=== PATIENT | male | born 1975 | race Caucasian/White ===

== ENCOUNTER 2023-08-11 21:56 | Emergency (ER) | payer BC, SELFPAY ==
[2023-08-11 22:02] VITALS: BP 172/100
[2023-08-11 22:22] LABS: % Basophils 0.9 % (0-2); % Eosinophils 4.1 % (0-6); % Immature Granulocytes 0.1 % (0-0.5); % Lymphocytes 25.1 % (20.5-51.1); % Monocytes 6.1 % (1.7-9.3); % Neutrophils 63.7 % (42.2-75.2); Absolute Basophils 0.1 10^3/uL (0-0.2); Absolute Eosinophils 0.3 10^3/uL (0-0.7); Absolute Lymphocytes 1.7 10^3/uL (1.2-3.4); Absolute Monocytes 0.4 10^3/uL (0.1-0.6); Absolute Neutrophils 4.3 10^3/uL (1.4-6.5); Hematocrit 39.7 % (39.0-52.0); Hemoglobin 14.2 g/dL (13.0-18.0); Mean Corp Hgb Conc. 35.8 g/dL (33.0-37.0); Mean Corpuscular Hgb 29.3 pg (27.0-31.0); Mean Platelet Volume 9.2 fL (7.4-10.4); Nucleated Red Blood Cells % 0 % (-); Platelet Count 277 10^3/uL (130-400); Red Blood Cell Count 4.84 10^6/uL (4.70-6.10); Urine Albumin Negative (Neg - Trace); Urine Bilirubin Negative (Negative); Urine Character Clear (Clear); Urine Color Yellow; Urine Glucose Negative (Negative); Urine Ketone Negative (Negative); Urine Leukocyte Negative (Negative); Urine Nitrite Negative (Negative); Urine Occult Blood Negative (Negative); Urine Specific Gravity 1.025 (<1.030); Urine Urobilinogen Negative (Neg - 1+); White Blood Cell Count 6.8 10^3/uL (4.8-10.8)
[2023-08-11 22:32] LABS: Lactic Acid 1.4 mmol/L (0.7-2.0)
[2023-08-11 22:39] LABS: ALT (SGPT) 20 U/L (0-50); AST (SGOT) 22 U/L (17-59); Albumin 4.4 g/dl (3.5-5.0); Alkaline Phosphatase 73 U/L (38-126); Blood Urea Nitrogen 17 mg/dl (9-20); Calcium 9.4 mg/dl (8.4-10.2); Carbon Dioxide 29 mmol/L (22-30); Chloride 101 mmol/L (98-107); Glucose 174 mg/dl (70-99); Lipase 251 U/L (23-300); Potassium 4.2 mmol/L (3.5-5.1); Sodium 135 mmol/L (135-145); Total Bilirubin 0.6 mg/dl (0.2-1.3); eGFR > 60.00
[2023-08-11 22:45] LABS: Troponin I < 0.012 ng/ml
[2023-08-11 23:10] VITALS: BMI 24.3
[2023-08-11 23:21] VITALS: BP 139/85
--- NOTE | 2023-08-11 23:33 | ED.GENMED ---
History of Present Illness
General
Chief Complaint: Abdominal Pain
Source: patient
Exam Limitations: none
Time Seen by Provider: 08/11/23 23:17
Travel History
Have you had any contact with someone who has COVID-19?: No
Do you have any symptoms of coronavirus? Fever > 100 degrees, chills, cough, shortness of breath, sore throat, loss of taste or smell, muscle aches, or headache?: No
History of Present Illness
History of Present Illness:
This is a 47 year old male that comes in with c/o abd pain. States that this has been going on for about 2 months. State that at first he thought it was to much air getting into his stomach from his CPAP machine and patient was switched to a Bipap
machine but he has not been using. State that it feels like tonight that there are marbles moving around in his abd. States that this causes his heart rate and BP to go up. States that night has been the worse. States that he has slight nausea and
sometimes it moves up into his chest. states that he has also lost weight and he is not trying. Denies any fever, chills, chest pain, SOB ,vomiting, diarrhea, headache, dizziness, urinary burning.
Past History
Past History
ED Past Medical History: Other (Back pain with bulging disc, )
ED Past Surgical History: Tonsilectomy
Social History
Tobacco: Smoker
Alcohol: None
Drug: Marijuana and Other (methamphetamine)
Personal:
Living: with family
Review of Systems
Review of Systems
All Other Systems: ROS reviewed and negative except as documented in HPI and ROS
Constitutional: Reports no symptoms; Denies fever or chills
EENT: Reports no symptoms
Respiratory: Reports no symptoms; Denies cough or trouble breathing
Cardiac: Reports no symptoms; Denies chest pain
ABD/GI: Reports abdominal pain and nausea; Denies vomiting or diarrhea
: Reports no symptoms; Denies dysuria or urgency
Musculoskeletal: Reports no symptoms
Skin: Reports no symptoms
Neurological: Reports no symptoms; Denies dizzy or headache
Psychiatric: Reports no symptoms
Phy Exam
General Physical Exam
General Presentation: no apparent distress
General age: appears stated age
General Skin: warm and dry
General Habitus: normal
General Mental: alert
General Hydration: appears well hydrated
ENT Exam
ENT Exam: TM's normal, pharynx normal and neck supple
Eye Exam
Eye Exam: EOMI
Cardiovascular Exam
Cardiovascular Exam: regular rate/rhythm, no edema, no murmur and normal peripheral pulses
Pulmonary Exam
Pulmonary Exam: lungs clear, no respiratory distress, no rales, chest non tender, no crackles, no rhonchi, no wheezing and no cough
Gastrointestinal Exam
Gastrointestinal Exam: normal bowel sounds, soft, no organomegaly, no pulsatile mass, non distended and tender (Generalized discomfort with palpation)
Musculoskeletal Exam
Musculoskeletal Exam: full ROM and no edema
Skin Exam
Skin Exam: normal color, warm/dry, no rash and no petechia
Psychiatric Exam
Psychiatric Exam: normal mood/affect
Course
Orders/Labs/Results
Orders:
Orders
08/11/23 21:57
Electrocardiogram (*1) Urgent
Reason for Study: Chest Pain
08/11/23 21:58
EKG- Treatment ONCE
08/11/23 22:12
Complete Blood Count/With Diff Urgent
Comprehensive Metabolic Panel Urgent
Lactic Acid Urgent
Lipase Urgent
Troponin I Urgent
Urine Culture Reflexed from UA [Urinalysis Reflex To Culture] Urgent
Date Specimen was Collected: 08/11/23
Time Specimen was Collected: 22:06
08/11/23 23:32
0.9% Sodium Chloride 1000 ml [Nss] 1,000 ml IV BOLUS
Iohexol [Omnipaque] See Protocol PO NOW STA
08/12/23 00:30
CT Abd/pel W Iv And Oral Contr Urgent
Reason For Exam: Generalized abd pain
Abnormal Lab Results
08/11/23
22:12
Glucose 174 H mg/dl
(70-99)
08/11/23 22:12
08/11/23 22:12
Glucose nonfasting However concern for diabetes. . Troponin <0.012, Lipase normal at 251, Urine negative for infection.
Vital Signs
Initial and Last Documented VS:
Initial Vital Signs
Temp Pulse Resp BP Pulse Ox
97.9 F 99 18 172/100 99
08/11/23 22:02 08/11/23 22:02 08/11/23 22:02 08/11/23 22:02 08/11/23 22:02
Last Documented Vital Signs
Temp Pulse Resp BP Pulse Ox
97.9 F 73 14 139/85 99
08/11/23 22:02 08/11/23 23:21 08/11/23 23:21 08/11/23 23:21 08/11/23 23:21
MDM/Problems Addressed
Differential Diagnosis Includes:
IBS, abd pain
MDM/Problems Addressed:
This is a 47 year old male that comes in with c/o abd pain. States that this has been going on for 2 months but tonight was the worse. State that he feels like something is rolling around.
Will get labs and CT scan
Back into see patient. Explained that his blood work shows that his blood sugar is elevated otherwise his blood work is normal along with the CT of the abd/pelvis. Explained to patient that this may be reflux and suggested that he try and stop his
Coffee. Will start patient on Protonix daily. Will also give patient a prescription for Metformin 500mg daily. Patient to follow up with the family doctor. Return with any concerns.
Chronic conditions affecting care:
NA
Acute Exacerbation and/or Progression of Chronic Illness:
NA
*Radiology
Radiology exam reviewed: radiology read reviewed (CT abd/pelvis, Night hawk- No definite CT findings to account for the reported pain/symptoms. No appendicitis or colitis. No evidence of small bowel obstruction. No free fluid or free air.
Unremarkable CT appearance of the gallbladder, biliary tract, and pancreas. No evidence of ) and other (CT cont- Hydroureteronephrosis or obstructing stone. Unremarkable appearance of the pelvic viscera. No AAA)
*Pulse Oximetry
Patient hypoxic: no
*EKG
Interpreted by ED Provider?: Yes
Heart Rate: 105
Rate: tachycardiac
Rhythm: sinus
[place]: normal axis
Interval: normal interval
QRS Pattern: right bundle branch block
Ischemia: no ischemia
*Shuttle Filler Interpretation
Rate: Shuttle Filler- N/A
*Critical Care Note
Total Time (30-74mins, 75-104mins- exclusive of procedures): Not Applicable
ED Attending Note
-
Portions of this chart may have been created with voice recognition software.� Occasional wrong word or��sound alike� substitutions may have occurred due to the inherent limitations of voice recognition software.
Discharge Plan
Departure
Patient Disposition: Home (Routine Discharge)
Date of Disposition: 08/12/23
Time of Disposition: 02:50
Patient with high blood pressure during this ER visit?: Yes
Condition: Good
Covid-19: Not Applicable
Discharge Problem:
Abdominal pain, New onset type 2 diabetes mellitus
Instructions: Acid Reflux and GERD in Adults (DC), Diabetes and diet, Abdominal Pain, BLOOD PRESSURE
Prescriptions:
New
pantoprazole [Protonix] 40 mg tablet,delayed release (DR/EC)
40 mg PO DAILY Qty: 30 0RF
metformin 500 mg tablet
500 mg PO DAILY Qty: 30 0RF
No Action
oxycodone-acetaminophen [Percocet] 1 EACH tablet
1 - 2 tab PO Q6HPRN PRN (Reason: PAIN) Qty: 20 0RF
Referrals:
Chaim Jensen CRNP [Family Provider] - Call in 1-3 days for appt
Activity Restrictions/Additional Instructions:
As discussed, your blood work shows that your blood sugar is elevated. This is most likely due to new onset diabetes. This would also explain your weight loss. Your urine is negative for infection. Your CT scan is negative for any acute process.
This may be some reflux that is causing your some discomfort. If you can stop your caffeine this will help decrease the reflux. You have had two prescription for Protonix sent to your Pharmacy. Please take as directed. Follow up with the family
doctor for further evaluation. IF YOU HAVE INCREASED OR CHANGING PAIN, OR YOU HAVE ANY OTHER CONCERNS PLEASE RETURN TO THE EMERGENCY ROOM.
Interventions
Interventions:
*Risk Screen - Suicide Last Done: 08/11/23 22:02
*General Assessment Last Done: 08/11/23 22:02
*Neglect/Abuse Screening Last Done: 08/11/23 23:11
ED- Fall Risk Assessment Last Done: 08/11/23 23:11
*ED COVID-19 Vaccine History Last Done: 08/11/23 23:11
OP-Uwvtoj-Micnxvlbpo Assessment Last Done: 08/11/23 23:11
[2023-08-12] MEDS: OMNIPAQUE 50 ML PO (00:04)
[2023-08-12] MEDS: NSS 1000 IV (00:31)
[2023-08-12] MEDS: PROTONIX IV 40 MG IV (03:02)
== END 2023-08-12 03:20 | disposition home or self-care (01) ==
LOC: EMR 21:56
PROVIDERS: Student in an Organized Health Care Education/Training Program; EMERGENCY PHYSICIAN Emergency Medicine; FAMILY PHYSICIAN Nurse Practitioner Family
DX: R10.9 Unspecified abdominal pain (principal); E11.8 Type 2 diabetes mellitus with unspecified complications; R03.0 Elevated blood-pressure reading, without diagnosis of hypertension
CPT/HCPCS: 99284; 96374; 96361; 74177; 80053; 81003; 83605; 83690; 84484; 85025; 93005; Q9967

== ENCOUNTER → 2023-08-16 10:30 | Outpatient (REF) | payer BC, SELFPAY | LOC: HWRAD 10:30 | PROVIDERS: ATTENDING PHYSICIAN Nurse Practitioner Family | DX: R05.1 Acute cough (principal) | CPT/HCPCS: 71046 ==